=== PATIENT | female | born 1960 | race Caucasian/White ===

== ENCOUNTER 2021-07-27 13:52 | Outpatient (CLI) | payer BC | END 2021-07-27 13:53 | disposition home or self-care (01) | LOC: CSHRAD 13:52 | PROVIDERS: ATTEND Internal Medicine | DX: J20.9 Acute bronchitis, unspecified (principal) | CPT/HCPCS: 71046 ==

== ENCOUNTER 2021-09-09 07:41 | Outpatient (CLI) | payer BC | END 2021-09-09 07:42 | disposition home or self-care (01) | LOC: CSHCT 07:41 | PROVIDERS: ATTEND Internal Medicine Gastroenterology | DX: R10.13 Epigastric pain (principal); K21.9 Gastro-esophageal reflux disease without esophagitis | CPT/HCPCS: 74177 ==

== ENCOUNTER 2022-04-29 13:38 | Outpatient (CLI) | payer BC | END 2022-04-29 13:39 | disposition home or self-care (01) | LOC: CSHRAD 13:38 | PROVIDERS: ATTEND Orthopaedic Surgery | DX: M54.50 Low back pain, unspecified (principal); M43.17 Spondylolisthesis, lumbosacral region | CPT/HCPCS: 72100 ==

== ENCOUNTER 2022-06-21 08:23 | Outpatient (CLI) | payer BC | END 2022-06-21 08:24 | disposition home or self-care (01) | LOC: CSHCT 08:23 | PROVIDERS: ATTEND Neurological Surgery | DX: M43.16 Spondylolisthesis, lumbar region (principal); M48.07 Spinal stenosis, lumbosacral region | CPT/HCPCS: 72131 ==

== ENCOUNTER 2022-11-08 13:07 | Outpatient (CLI) | payer BC | END 2022-11-08 13:08 | disposition home or self-care (01) | LOC: CSHCT 13:07 | PROVIDERS: ATTEND Neurological Surgery | DX: M54.16 Radiculopathy, lumbar region (principal); M43.17 Spondylolisthesis, lumbosacral region; Z98.890 Other specified postprocedural states | CPT/HCPCS: 72131 ==

== ENCOUNTER 2023-08-07 09:04 | Outpatient (CLI) | payer BC | END 2023-08-07 09:05 | disposition home or self-care (01) | LOC: CSHRAD 09:04 | PROVIDERS: ATTEND Internal Medicine | DX: J98.01 Acute bronchospasm (principal) | CPT/HCPCS: 71046 ==

== ENCOUNTER 2024-04-24 13:30 | Outpatient (CLI) | payer BC | END 2024-04-24 13:31 | disposition home or self-care (01) | LOC: CSHULT 13:30 | PROVIDERS: ATTEND Internal Medicine | DX: R00.0 Tachycardia, unspecified (principal); I51.9 Heart disease, unspecified | CPT/HCPCS: 93306 ==

== ENCOUNTER 2024-08-01 13:50 | Outpatient (CLI) | payer BC | END 2024-08-01 13:51 | disposition home or self-care (01) | LOC: CSHMAMMO 13:50 | PROVIDERS: ATTEND Internal Medicine | DX: Z12.31 Encounter for screening mammogram for malignant neoplasm of breast (principal); Z91.89 Other specified personal risk factors, not elsewhere classified; Z98.890 Other specified postprocedural states | CPT/HCPCS: 77063; 77067 ==

== ENCOUNTER 2025-09-05 14:21 | Outpatient (CLI) | payer BC | END 2025-09-05 14:22 | disposition home or self-care (01) | LOC: CSHMAMMO 14:21 | PROVIDERS: ATTEND Internal Medicine | DX: Z12.31 Encounter for screening mammogram for malignant neoplasm of breast (principal); Z91.89 Other specified personal risk factors, not elsewhere classified; Z98.890 Other specified postprocedural states; R92.343 Mammographic extreme density, bilateral breasts | CPT/HCPCS: 77063; 77067 ==